=== PATIENT | male | born 1985 ===

== ENCOUNTER 2024-05-05 05:36 | Day surgery (SDC) | payer OTHER ==
[2024-05-01 11:08] VITALS: BP 120/77
[~2024-05-05] VITALS: Ht 177.8 cm; Wt 100.2 kg
[~2024-05-05 05:36] MED LIST: LOSARTAN-HCTZ1 EAC1 PO; NIFEDIPINE ER30 M1 PO
[2024-05-05] MEDS ORDERED: CEFTRIAXONE SODIUM 2,000 MG VIAL ONE (09:13)
[2024-05-05] MEDS ORDERED: METRONIDAZOLE/SODIUM CHLORIDE 500 MG/100 ML PIGGYBACK IV ONE (09:14)
[2024-05-05] MEDS ORDERED: HEMOSTATIC MATRIX 1 KIT KIT TOP ONE (10:43)
[2024-05-05] MEDS ORDERED: BUPIVACAINE HCL/Mpf 0.5% 10ML VIAL ONE (10:43)
[2024-05-05] MEDS ORDERED: POVIDONE-IODINE 118 ML BOTT TOP ONE (10:43)
[2024-05-05] MEDS ORDERED: DIBUCAINE 30 GM TUBE ONE (10:43)
[2024-05-05] MEDS ORDERED: LIDOCAINE HCL 1%/EPINEPHRINE 20ML VIAL IJ ONE (10:44)
[2024-05-05] MEDS ORDERED: TRAM1TAB98 PO (12:09)
[2024-05-05] MEDS ORDERED: NEURONTIN300 MG PO (12:09)
[2024-05-05] MEDS ORDERED: COLACE100 MG PO (12:09)
== END 2024-05-05 18:15 | disposition home or self-care (01) ==
LOC: CIR.AMB 05:36
PROVIDERS: ATTEND Surgery
DX: K60.1 Chronic anal fissure (principal); K62.4 Stenosis of anus and rectum; Z88.6 Allergy status to analgesic agent; I10 Essential (primary) hypertension